=== PATIENT | male | born 1965 | race Caucasian/White ===

== ENCOUNTER 2020-05-02 16:47 | Inpatient (IN) | payer OTHER, SELFPAY ==
[2020-05-02] VITALS (8 sets, daily range): BP systolic 115–126; BP diastolic 62–70; PULSE 66–108; RESP 20–24; TEMP 37.2–38.2; O2SAT 90–93; BMI 29.8
--- NOTE | ~2020-05-02 | XR_ITS ---
EXAMINATION: XR chest 1V portable INDICATION: COVID pneumonia TECHNIQUE: Portable AP chest at 0524 hours COMPARISON: 05/03/2020 FINDINGS: Diffuse opacities persist in all lung zones with slight interval improvement. There is no p leural effusion or pneumothorax. The cardiomediastinal silhouette is normal. IMPRESSION: 1. Diffuse lung disease with interval improvement, consistent with pneumonia and/or pulmonary edema a nd/or acute respiratory distress syndrome (ARDS). Reviewed, dictated and finalized at location A. CT MARKETING SPECIALIST IMPRESSION: 1. Diffuse lung disease with interval improvement, consistent with pneumonia an d/or pulmonary edema and/or acute respiratory distress syndrome (ARDS).
--- NOTE | ~2020-05-02 | XR_ITS ---
EXAMINATION: XR chest 1V portable INDICATION: Shortness of breath and cough, COVID 19 positive TECHNIQUE: Portable AP chest at 1738 hours COMPARISON: None available FINDINGS: There are diffuse opacities throughout all lung zones. No pleural effusion or pneumothorax is identified. The cardiomediastinal silhouette is normal for technique. IMPRESSION: 1. Diffuse lung disease, likely COVID 19 pneumonia given clinical history. Reviewed, dictated and finalized at location A. NESE PROFESSOR
--- NOTE | ~2020-05-02 | XR_ITS ---
EXAMINATION: XR chest 1V portable INDICATION: Increasing oxygen TECHNIQUE: Portable AP chest at 0742 hours COMPARISON: 05/02/2020 FINDINGS: There are diffuse opacities throughout all lung zones which demonstrate slight interval wor sening. There is no pleural effusion or pneumothorax. The cardiomediastinal silhouette is stable. IMPRESSION: 1. Diffuse lung disease with interval worsening, consistent with pneumonia and/or pulmonary edema and /or acute respiratory distress syndrome (ARDS). Reviewed, dictated and finalized at location A. LATION ENGINEER IMPRESSION: 1. Diffuse lung disease with interval worsening, consistent with pneumonia and/ or pulmonary edema and/or acute respiratory distress syndrome (ARDS).
[2020-05-02 17:28] LABS: Basophils Percent Auto 0.2 % (0.2-1.2); Hematocrit 42.9 % (42.0-52.0); Hemoglobin 14.4 g/dL (14.0-18.0); Immature Granulocyte Absolute 0.08 K/mm3 (0.00-0.031); Immature Granulocyte Percent A 0.6 % (0-0.5); Lymphocytes Absolute Auto 0.86 K/mm3 (0.9-3.2); Lymphocytes Percent Auto 6.4 % (18.3-44.2); Mean Corpuscular HGB Conc 33.6 g/dl (32-36); Mean Corpuscular Hemoglobin 29.7 pg (26-34); Mean Corpuscular Volume 88.5 fl (80-100); Mean Platelet Volume 8.9 fl (7.4-10.4); Monocytes Absolute Auto 0.6 K/mm3 (0.1-0.6); Monocytes Percent Auto 4.5 % (2.6-8.5); Neutrophils Absolute Auto 11.9 K/mm3 (1.3-6.7); Neutrophils Percent Auto 88.3 % (45.5-73.1); Platelet Count Result 294 k/mm3 (150-375); Red Blood Count 4.85 M/mm3 (4.6-6.20); Red Cell Distribution Width 12.6 % (11.5-14.5); White Blood Count 13.4 K/mm3 (4.5-10.0)
[2020-05-02 17:40] LABS: Lactate Dehydrogenase 886 U/L (313-618)
[2020-05-02] MEDS: DEXAMETHASONE SOD PHOS INJ 4 MG/ML VIAL 6 MG IV PUSH (17:42)
[2020-05-02] MEDS: ENOXAPARIN 100 MG/ML SYRINGE SUB-Q (17:42)
[2020-05-02] MEDS: ALBUTEROL SULFATE (*SP) AEROSOL 1 PUFF 4 PUFF INHALATION (17:49)
--- NOTE | 2020-05-02 18:44 | ED.SOB ---
HPI - SOB/Dyspnea General Chief Complaint: Shortness of Breath/Dyspnea Stated Complaint: covid +/SOB Time Seen by Provider: 05/02/20 17:07 Source: patient Mode of arrival: ambulatory Limitations: no limitations History of Present Illness HPI Narrative: 54-year-old male Type 2 diabetes hypertension and high cholesterol 8 days ago he started having URI symptoms with congestion 7 days ago he had a Covid test done at [facility] Days ago the Covid test was reported as positive and he was started on an albuterol inhaler as needed by his primary care doctor 2 days ago he started getting more short of breath and to cough more and this has continued to become progressively worse He works for [employer], has not been in contact with Covid that he knows of, has not been able to get immunized either and did not get bamlanivimab elicited complaint: shortness of breath and cough Related Data Allergies Allergy/AdvReac Type Severity Reaction Status Date / Time No Known Allergies Allergy Unverified 05/02/20 17:03 Review of Systems Review of Systems: All systems reviewed & are unremarkable except as noted in HPI and below Constitutional: Constitutional: Reports chills, Reports fatigue, Reports fever(s), Denies headache(s) and Reports weakness Eyes: Eyes: Reports no additional eye complaints and Denies change in vision ENT: Denies headache(s), Denies epistaxis, Reports nasal congestion and Denies sore throat Cardiovascular: Cardiovascular: Denies chest pain, Denies leg edema, Denies palpitations and Denies dyspnea Respiratory: Respiratory: Reports cough, Reports dyspnea and Denies wheezing Gastrointestinal: Gastrointestinal: Denies diarrhea and Denies vomiting Genitourinary: Genitourinary: Denies hematuria, Denies dysuria and Denies urinary frequency Musculoskeletal: Musculoskeletal: Reports myalgias, Denies deformity, Denies arthralgias, Denies joint swelling, Denies muscle weakness and Denies numbness Integumentary/Breasts: Skin/Breast: Denies rash and Denies wounds Neurologic: Denies headache(s), Denies focal weakness, Denies numbness and Reports weakness Psychiatric: Psychiatric: Reports no additional psychiatric complaints Endocrine: Endocrine: Denies fatigue and Denies palpitations Hematologic/Lymphatic: Hematologic/Lymphatic: Denies easy bleeding and Denies easy bruising Allergic/Immunologic: Allergic/Immunologic: Denies wheezing [facility] Family History Family History (Updated 09/24/15 @ 23:19 by DOCTOR UNKNOWN) Father Hypertension Carcinoma of colon Family history of diabetes mellitus in first degree relative Family history of coronary artery disease Mother Hypertension Social History Social History (Updated 10/10/19 @ 13:58 by Raysa Cortez) Smoking status: Never smoker Second hand tobacco smoke exposure: No Alcohol intake: never Substance use: never Substance use type: does not use Gender identity (if verbalized by the patient): Male Exam Const: General: well developed, alert and awake Nutritional Appearance: well nourished Orientation/consciousness: patient oriented x3 (alert) HENMT: Head: normocephalic and atraumatic Ears: external ears normal General nose exam: No nasal discharge present and no epistaxis Face and sinus: face symmetric Eyes: Conjunctivae: conjunctivae normal Sclera: sclerae normal EOM: EOMs intact bilaterally Neck: Neck: normal visual inspection, supple and no JVD Chest: Chest palpation & inspection: deferred Resp: Effort & Inspection: tachypneic Auscultation: clear to auscultation bilaterally, no wheezes and other (BS =) Cardio: Rate: regular rate Rhythm: regular rhythm Heart sounds: no gallops and no murmurs GI: Inspection: normal to inspection Back/Spine/Pelvis: Thoracic/Lumbar Spine: thoracic and lumbar spine normal to inspection Skin: General skin exam: normal color and no rashes or lesions noted Neuro: General: patient oriented
[2020-05-02 19:37] LABS: Alanine Aminotransferase 27 U/L (4-50); Albumin Level 4.2 g/dL (3.5-5.1); Alkaline Phosphatase 70 U/L (38-126); Anion Gap 10 mmol/L (8-16); Aspartate Amino Transferase 54 U/L (17-59); Bilirubin,Total 0.7 mg/dL (0.2-1.3); Blood Urea Nitrogen 21 mg/dL (9-20); Calcium 8.6 mg/dL (8.4-10.2); Carbon Dioxide 30 mmol/L (22-30); Chloride 93 mmol/L (98-107); Estimated CRCL calculation 83 ml/min; Estimated Glomerular Filt Rate > 60; Glucose 233 mg/dL (75-110); Potassium 4.1 mmol/L (3.4-5.0); Sodium 133 mmol/L (137-145)
--- NOTE | 2020-05-02 20:49 | PM.IMHP ---
H&P: HPI History of Present Illness Date/Time: 05/02/20 20:49 Chief Complaint: COVID-19, worsening shortness of breath Narrative: Clayton Raoms is a 54 year old male with a past medical history of diabetes, hypertension and COVID diagnosis 7 days ago who presented to the ER with shortness of breath. On arrival to the ER the patient was satting 86% on room air. The patient is now on 4 L nasal cannula satting 88-90%. The patient reports that he has been having symptoms for 8 days. He tested positive for COVID 7 days ago. He contacted his primary care physician and was given scripts for benzo weight and albuterol. His symptoms included mild nonproductive cough, low-grade fevers with temperatures mostly around 99 until the last 48 hours at which time he spiked to 101, mild generalized headaches and nasal congestion. He reports that he was having some abdominal pain with coughing for the last couple of days but the abdominal pain has since resolved. He began having shortness of breath 3 days ago that significantly worsened over the last 24 hours. He denies any chest pain or palpitations. He denies any loss of sense of taste or smell. He has not been having any GI symptoms. He denies any body aches. He reports that he works in the [employer] industry and does not know of any recent ill contacts. Review of Systems Review of Systems: Narrative: 12 systems were reviewed with pertinent positives and negatives per HPI. Except as documented in the HPI, all other systems were reviewed and are negative. [facility] Past Medical History Medical History (Updated 05/02/20 @ 21:55 by Shawnee Rothman DO) Diabetes mellitus Hemoglobin A1c 09/2019 7.5 Essential (primary) hypertension Pure hypercholesterolemia Surgical History Surgical History (Updated 05/02/20 @ 21:55 by Shawnee Rothman DO) History of tonsillectomy and adenoidectomy Family History Family History (Updated 05/02/20 @ 21:56 by Shawnee Rothman DO) Father , At age 73 Diabetes mellitus Coronary artery disease Carcinoma of colon Hypertension Mother Hypertension Sibling Perforated chronic stomach ulcer Opioid dependence Social History Social History (Updated 05/02/20 @ 21:57 by Shawnee Rothman DO) Social History: He lives in [place] with his of 30 years. He also lives with his 20-year-old son and his father in law. He works in the [employer] industry. He is a lifelong nonsmoker and never drinks alcohol or uses illicit substances. She Primary care physician: Dr. Asim Peraza Code status: Full code Surrogate decision maker: Zena () Smoking status: Never smoker Second hand tobacco smoke exposure: No Alcohol intake: never Substance use: never Substance use type: does not use Gender identity (if verbalized by the patient): Male Spiritual care concerns: No Meds Home Medications and Allergies Home Medications Medication Instructions Recorded Confirmed Type blood sugar diagnostic #100 each 04/25/19 05/02/20 Rx empagliflozin 10 mg tablet 10 mg PO DAILY #90 tablet 02/03/20 05/02/20 Rx lisinopril 20 1 tablet PO DAILY #90 tablet 02/03/20 05/02/20 Rx mg-hydrochlorothiazide 25 mg tablet metformin 1,000 mg tablet 1,000 mg PO BID #180 tablet 02/03/20 05/02/20 Rx rosuvastatin 10 mg tablet 10 mg PO DAILY #90 tablet 02/03/20 05/02/20 Rx saxagliptin 5 mg tablet 5 mg PO DAILY #90 tablet 02/03/20 05/02/20 Rx benzonatate 100 mg capsule 100 mg PO TID PRN #30 cap 04/26/20 05/02/20 Rx albuterol sulfate 2 inh INHALATION Q4H PRN 05/02/20 05/02/20 History Allergies Allergy/AdvReac Type Severity Reaction Status Date / Time No Known Allergies Allergy Unverified 05/02/20 17:03 Vital Signs Vital Signs - 24 hr 05/02/20 16:53 05/02/20 17:30 05/02/20 18:30 Temperature 99 F Pulse Rate 97 108 H 103 H Respiratory Rate 23 H 24 H 22 H Blood Pressure 125/62 116/70 122/64 Pulse Oximetry 90 93 92 05/02/20
--- NOTE | 2020-05-02 20:58 | PC.NURSE ---
This patient, Clayton Ramos, was admitted to [facility] Surg Room 328-01. Patient/family oriented to hospital policies and general routines including ID bracelet, bed and alarms, visiting hours, pain management, procedures, bathroom and other care routines, personal items, smoking policy, room service/diet, and visiting hours. Information on how to activate the Rapid Response Team has been discussed. Patient/Family are encouraged to report perceived risks to care and to ask questions if they do not understand what they are told or what they should do.
[2020-05-02] MEDS: LACTATED RINGERS 1,000 ML 30 ML IV CONT (21:16)
[2020-05-02] MEDS: FAMOTIDINE 20 MG/2 ML VIAL IV PUSH (21:17)
[2020-05-02] MEDS: REMDESIVIR 200 MG/NS 250 ML 200 MG/250 ML BAG 250 MG IVPB (21:48)
[2020-05-02 23:54] LABS: Glucose Point of Care 344 (65-105)
[2020-05-02 23:54] LABS: Glucose Point of Care 273 (65-105)
[2020-05-03] VITALS (21 sets, daily range): BP systolic 109–128; BP diastolic 55–67; PULSE 54–86; RESP 17–28; TEMP 35.6–37.1; O2SAT 90–99
[2020-05-03] MEDS: INSULIN ASPART (*BKC) 100 UNITS/ML 6 UNITS SUB-Q (01:27)
[2020-05-03] MEDS: ALBUTEROL SULFATE (*SP) AEROSOL 1 PUFF 4 PUFF INHALATION ×3 (01:52→20:00)
[2020-05-03] MEDS: ENOXAPARIN 100 MG/ML SYRINGE SUB-Q ×2 (05:23→19:00)
[2020-05-03 05:27] LABS: Glucose Point of Care 243 (65-105)
[2020-05-03 06:20] LABS: Alanine Aminotransferase 24 U/L (4-50); Albumin Level 3.5 g/dL (3.5-5.1); Alkaline Phosphatase 57 U/L (38-126); Anion Gap 7 mmol/L (8-16); Aspartate Amino Transferase 39 U/L (17-59); Bilirubin,Total 0.4 mg/dL (0.2-1.3); Blood Urea Nitrogen 26 mg/dL (9-20); Calcium 7.7 mg/dL (8.4-10.2); Carbon Dioxide 31 mmol/L (22-30); Chloride 94 mmol/L (98-107); Estimated CRCL calculation 76 ml/min; Estimated Glomerular Filt Rate > 60; Glucose 271 mg/dL (75-110); Lactate Dehydrogenase 766 U/L (313-618); Potassium 4.2 mmol/L (3.4-5.0); Sodium 132 mmol/L (137-145)
[2020-05-03 06:47] LABS: Hematocrit 38.3 % (42.0-52.0); Hemoglobin 12.8 g/dL (14.0-18.0); Mean Corpuscular HGB Conc 33.4 g/dl (32-36); Mean Corpuscular Hemoglobin 29.4 pg (26-34); Mean Corpuscular Volume 87.8 fl (80-100); Mean Platelet Volume 9.2 fl (7.4-10.4); Platelet Count Result 315 k/mm3 (150-375); Red Blood Count 4.36 M/mm3 (4.6-6.20); Red Cell Distribution Width 12.2 % (11.5-14.5); White Blood Count 12.2 K/mm3 (4.5-10.0)
[2020-05-03 07:29] LABS: CRP 34.4 mg/dL (<1.0)
--- NOTE | 2020-05-03 07:32 | PCCARD ---
Changed echocardiogram w/bubble study order to a regular echocardiogram due to patient positive for covid. We don't due bubble studies when patient is covid positive
[2020-05-03] MEDS: ALBUTEROL SULFATE NEB 2.5 MG/3 ML INH 1.25 MG INHALATION (07:42)
[2020-05-03] MEDS: IPRATROPIUM BR 0.02% INH SOLN 0.5 MG/2.5 ML VIAL INHALATION (07:42)
[2020-05-03 07:49] LABS: Alveolar/Arterial O2 Gradient 611.3 mmHg; Base Excess ABG 1.1 mEq/l (+/-2.0); Fractional Inspired Oxygen 100 %; HCO3 ABG 23.9 mEq/l (22.0-26.0); Methemoglobin ABG 0.2 %THb (0-1.5); Oxygen Content ABG 18.8 %vol (16.0-22.0); Oxygen Saturation ABG 95.1 % (95.0-100.0); Oxyhemoglobin 93.4 % THb (90.0-100.0); PCO2 ABG 32.8 mmHg (35.0-45.0); PO2 ABG 68.9 mmHg (80.0-100.0); PO2 FiO2 Ratio Arterial Blood 0.69 %; Reduced Hemoglobin 6.4 %THb (0-5.0); Total Hemoglobin 14.3 g/dL (12.0-18.0); pH ABG 7.481 (7.350-7.450)
[2020-05-03 07:50] LABS: Device HIGH FLOW NASAL CANN; Modified Allen's Test Pass; Site Drawn RIGHT RADIAL
[2020-05-03 08:09] LABS: INR 1.1; Prothrombin Time 14.7 Seconds (11.1-14.7)
[2020-05-03 08:11] LABS: Partial Thromboplastin Time 51.9 SECONDS (22.3-36.8)
[2020-05-03] MEDS: INSULIN ASPART (*BKC) 100 UNITS/ML SUB-Q ×3 (08:11→19:00)
[2020-05-03 08:13] LABS: D Dimer 0.67 ug/mL (<0.48)
[2020-05-03] MEDS: INSULIN ASPART (*BKC) 100 UNITS/ML 10 UNITS SUB-Q ×3 (08:13→19:00)
[2020-05-03] MEDS: FAMOTIDINE 20 MG/2 ML VIAL IV PUSH ×2 (08:14→20:47)
[2020-05-03] MEDS: DEXAMETHASONE SOD PHOS INJ 4 MG/ML VIAL 6 MG IV PUSH (08:14)
[2020-05-03] MEDS: hydroCHLOROthiazide 25 MG TABLET PO (08:14)
[2020-05-03 08:15] LABS: NT Pro B Type Natriuretic Pept 1830 PG/ML (5-100)
[2020-05-03] MEDS: lisinopriL 20 MG TABLET PO (08:15)
[2020-05-03] MEDS: ROSUVASTATIN 10 MG TABLET PO (08:15)
[2020-05-03 08:29] LABS: Glucose Point of Care 256 (65-105)
--- NOTE | 2020-05-03 09:23 | PC.NURSE ---
This patient, Clayton Ramos, was transferred to [IMU] on 05/03/20 at 0858. Personal belongings sent with patient. Report given to [Marya]. Appropriate documentation sent with patient.
[2020-05-03 12:45] LABS: Glucose Point of Care 296 (65-105)
--- NOTE | 2020-05-03 14:31 | PM.IMPN ---
Progress Note: A&P Assessment and Plan (1) Pneumonia due to COVID-19 virus: Code(s): U07.1 - COVID-19; J12.82 - Pneumonia due to coronavirus disease 2019 Status: Acute Assessment and Plan: Transferred to IMU due to increased oxygen demands Remdesivir/Dexamethasone/Convalescent plasma Inflammatory markers Flu CTA PE protocol (2) Acute respiratory failure with hypoxia: Code(s): J96.01 - Acute respiratory failure with hypoxia Status: Acute Assessment and Plan: On 15 L by HFNC Try and keep O2 sat at 94% Discussed vent support patient agreeable to it (3) Type 2 diabetes mellitus with hyperglycemia: Qualifiers: Diabetes mellitus hydrometer finisher insulin use: without correction use Qualified Code(s): E11.65 - Type 2 diabetes mellitus with hyperglycemia Code(s): E11.65 - Type 2 diabetes mellitus with hyperglycemia Status: Acute Assessment and Plan: ISS as needed Holding po drugs due to potential fo adverse reaction and or complications with metabolic acidosis and kidney failure Subjective Date/time seen: 05/03/20 14:31 Patient states that he feels ok Review of Systems Review of Systems: Narrative: cough, sob, positive for Covid 19 Constitutional: Comments: no fever, no rigors, no chills. Cardiovascular: Comments: no chest pain, no pnd, no orthopnea Respiratory: Comments: dry cough, sob. Gastrointestinal: Comments: no n/v/abdominal pain. Musculoskeletal: Comments: no joint pain or swelling. Integumentary/Breasts: Comments: no rashes Neurologic: Comments: no sensory motor deficit. Exam Narrative: Exam Narrative: Sitting in bed. Const: General: comfortable, no acute distress, alert, awake, Physically active and ill appearing acutely Nutritional Appearance: average body habitus Orientation/consciousness: patient oriented x3 HENMT: Head: normal to inspection and normocephalic Ears: hearing grossly normal bilaterally General nose exam: Normal external nose present Eyes: General: appearance normal, both eyes and all related structures Pupils: Equal, round and reactive pupils present EOM: EOMs intact bilaterally Neck: Neck: no lymphadenopathy, supple and no JVD Lymphatic: no lymphadenopathy noted Resp: Effort & Inspection: normal respiratory effort and able to speak in complete sentences Auscultation: diminished lung sounds Cardio: Jugular venous distension: no JVD Rate: regular rate Rhythm: regular rhythm GI: GI Palp: Yes Soft to palpation and Yes No hepatosplenomegaly present Skin: Rashes: no rashes Neuro: General: patient oriented x3 and CN's II-XI intact bilaterally Cranial nerves: Yes CN's II-XII intact bilaterally and Yes Equal, round and reactive pupils present Cognition (Neuro): normal cognition Gait exam (Neuro): Normal gait present Motor exam (neuro): 5/5 motor strength present throughout Extrem: General: no pedal edema Objective Data Vital Signs Vital Signs: Vital Signs - 24 hr 05/02/20 16:53 05/02/20 17:30 05/02/20 18:30 Temperature 99 F Pulse Rate 97 108 H 103 H Respiratory Rate 23 H 24 H 22 H Blood Pressure 125/62 116/70 122/64 Pulse Oximetry 90 93 92 05/02/20 19:50 05/02/20 20:20 05/02/20 21:00 Temperature 100.7 F H Pulse Rate 98 97 Respiratory Rate 20 20 Blood Pressure 126/65 115/66 Pulse Oximetry 92 91 91 05/02/20 21:45 05/02/20 23:57 05/03/20 00:00 Temperature 98.5 F Pulse Rate 80 66 66 Respiratory Rate 20 Blood Pressure 128/64 Pulse Oximetry 92 91 05/03/20 00:49 05/03/20 02:00 05/03/20 02:05 Temperature Pulse Rate 71 Respiratory Rate 28 H Blood Pressure Pulse Oximetry 91 92 92 05/03/20 03:12 05/03/20 03:22 05/03/20 04:00 Temperature 98.5 F Pulse Rate 76 Respiratory Rate 22 H Blood Pressure 123/60 Pulse Oximetry 90 93 93 05/03/20 07:42 05/03/20 07:51 05/03/20 08:00 Temperature 97.9 F Pulse Rate 78 78 73 Respiratory Rate 20 20 20 Blood
--- NOTE | 2020-05-03 14:45 | PC.NURSE ---
Patient transferred from [facility] to IMU at 0855 due to COVID + and increasing oxygen needs.
[2020-05-03 15:46] LABS: NT Pro B Type Natriuretic Pept 1860 PG/ML (5-100)
[2020-05-03 17:16] LABS: Glucose Point of Care 335 (65-105)
[2020-05-03] MEDS: SODIUM CHLORIDE 0.9% IV 250 ML 30 ML IV CONT (19:00)
[2020-05-03] MEDS: TUBING, BLOOD PLUM PUMP TUBING 1 EACH XX (19:00)
[2020-05-03] MEDS: REMDESIVIR 100 MG/NS 250 ML 100 MG/250 ML BAG 250 MG IVPB (22:24)
[2020-05-04] VITALS (19 sets, daily range): BP systolic 108–121; BP diastolic 56–63; PULSE 57–107; RESP 18–225; TEMP 35.6–36.9; O2SAT 91–97
[2020-05-04] MEDS: ALBUTEROL SULFATE (*SP) AEROSOL 1 PUFF 4 PUFF INHALATION ×4 (02:00→20:40)
[2020-05-04 04:55] LABS: Mean Corpuscular HGB Conc 33.3 g/dl (32-36); Mean Platelet Volume 8.9 fl (7.4-10.4); Platelet Count Result 340 k/mm3 (150-375); Red Blood Count 4.14 M/mm3 (4.6-6.20); Red Cell Distribution Width 12.4 % (11.5-14.5); White Blood Count 12.8 K/mm3 (4.5-10.0)
[2020-05-04 05:15] LABS: Alanine Aminotransferase 28 U/L (4-50); Albumin Level 3.2 g/dL (3.5-5.1); Alkaline Phosphatase 60 U/L (38-126); Anion Gap 7 mmol/L (8-16); Aspartate Amino Transferase 39 U/L (17-59); Bilirubin,Total 0.4 mg/dL (0.2-1.3); Blood Urea Nitrogen 40 mg/dL (9-20); Calcium 7.7 mg/dL (8.4-10.2); Carbon Dioxide 31 mmol/L (22-30); Chloride 95 mmol/L (98-107); Estimated CRCL calculation 83 ml/min; Estimated Glomerular Filt Rate > 60; Glucose 245 mg/dL (75-110); Lactate Dehydrogenase 779 U/L (313-618); Sodium 133 mmol/L (137-145)
[2020-05-04 05:33] LABS: CRP 20.8 mg/dL (<1.0)
[2020-05-04] MEDS: ENOXAPARIN 100 MG/ML SYRINGE SUB-Q ×2 (06:07→17:04)
[2020-05-04 08:06] LABS: Glucose Point of Care 256 (65-105)
[2020-05-04] MEDS: lisinopriL 20 MG TABLET PO (09:14)
[2020-05-04] MEDS: DEXAMETHASONE SOD PHOS INJ 4 MG/ML VIAL 6 MG IV PUSH (09:14)
[2020-05-04] MEDS: FAMOTIDINE 20 MG/2 ML VIAL IV PUSH ×2 (09:14→20:30)
[2020-05-04] MEDS: hydroCHLOROthiazide 25 MG TABLET PO (09:14)
[2020-05-04] MEDS: INSULIN ASPART (*BKC) 100 UNITS/ML SUB-Q ×3 (09:15→17:06)
[2020-05-04] MEDS: INSULIN ASPART (*BKC) 100 UNITS/ML 10 UNITS SUB-Q ×3 (09:15→17:06)
[2020-05-04 12:29] LABS: Glucose Point of Care 324 (65-105)
[2020-05-04 15:33] LABS: Influenza Control Positive
--- NOTE | 2020-05-04 17:09 | PM.IMPN ---
Progress Note: A&P Assessment and Plan (1) Acute respiratory failure with hypoxia: Code(s): J96.01 - Acute respiratory failure with hypoxia Status: Acute Assessment and Plan: Patient was up to 15 L HFNC. Chest x-ray yesterday showed diffuse lung disease with interval worsening. He did receive plasma yesterday. O2 requirement improved today at 10L. Continue supportive care. (2) Pneumonia due to COVID-19 virus: Code(s): U07.1 - COVID-19; J12.82 - Pneumonia due to coronavirus disease 2018 Status: Acute Assessment and Plan: Transferred to IMU yesterday due to increased oxygen demands. Given Convalescent plasma 05/03/20. Remains on Dexamethasone and Remdesivir. Inflammatory markers showing improved CRP level but LDH about the same with ferritin climbing. Influenza negative. Oxygen requirement improved. Continue supportive care. Lower Lovenox dose. (3) Type 2 diabetes mellitus with hyperglycemia: Qualifiers: Diabetes mellitus buttermilk drier operator insulin use: without buttermilk drier operator use Qualified Code(s): E11.65 - Type 2 diabetes mellitus with hyperglycemia Code(s): E11.65 - Type 2 diabetes mellitus with hyperglycemia Status: Acute Assessment and Plan: The patient's blood glucose was reviewed on 05/04 Glucose poorly controlled due to steroids. Empagliflozin, saxagliptin and metformin held. Continue AccuCheks covering with sliding scale. Hypoglycemia protocol available as needed. Continue current medications. Add Lantus (4) Essential (primary) hypertension: Code(s): I10 - Essential (primary) hypertension Status: Acute Assessment and Plan: Patient's blood pressure was reviewed on 05/04 Blood pressure remains well controlled. Will continue current medications with lisinopril and hydrochlorothiazide. (5) DVT prophylaxis: Code(s): Z29.9 - Encounter for prophylactic measures, unspecified Status: Acute Assessment and Plan: Lovenox but lower dose to prophylactic dose. Subjective Date/time seen: 05/04/20 17:09 Interval history: Date of service 05/04 54yo male with DM, HTN here for COVID PNA and respiratory failure. Feels much better. SOB better. Still with VARELA. No CP. Eating well. no dysgeusia. Exam Narrative: Exam Narrative: AF 96.1 121/63 64 22 95 % 12L HFNC (on 10L currenlty) Gen - NARD Chest - distant but clear BS, nml RR CV - RRR S1/S2; Tele showing no significant dysrhythmias Abd - Soft, NT/ND, Positive BS Ext - mild nonpitting pedal edema Neuro - Alert and oriented. Nonfocal exam. Psych - Nml mood and affect Skin - Warm and dry Objective Data Vital Signs Vital Signs: Vital Signs - 24 hr 05/03/20 17:45 05/03/20 19:23 05/03/20 20:00 Temperature 98.7 F 97.3 F L 97.3 F L Pulse Rate 70 86 83 Respiratory Rate 20 18 18 Blood Pressure 114/58 L 125/67 Pulse Oximetry 96 91 99 05/03/20 21:46 05/03/20 22:00 05/04/20 00:00 Temperature 98.2 F Pulse Rate 79 69 81 Respiratory Rate 18 20 Blood Pressure 110/56 L Pulse Oximetry 92 91 05/04/20 02:00 05/04/20 04:00 05/04/20 06:00 Temperature 98.2 F Pulse Rate 65 57 L 57 L Respiratory Rate 18 Blood Pressure 110/59 L Pulse Oximetry 92 05/04/20 08:00 05/04/20 08:15 05/04/20 08:38 Temperature 96.7 F L Pulse Rate 72 72 Respiratory Rate 23 H 23 H Blood Pressure 108/56 L Pulse Oximetry 93 91 93 05/04/20 10:00 05/04/20 12:00 05/04/20 12:40 Temperature 96.1 F L Pulse Rate 73 71 70 Respiratory Rate 22 H Blood Pressure 121/63 Pulse Oximetry 95 92 05/04/20 14:00 05/04/20 14:13 Temperature Pulse Rate 64 Respiratory Rate Blood Pressure Pulse Oximetry 95 Intake/Output Intake/Output: Intake & Output 05/01/20 05/02/20 05/03/20 05/04/20 23:59 23:59 23:59 23:59 Intake Total 250 1697 480 Output Total 2300 200 Balance 250 -603 280 Meds/Results Medications: Active Medications G
[2020-05-04 17:12] LABS: Glucose Point of Care 247 (65-105)
[2020-05-04 20:21] LABS: Glucose Point of Care 360 (65-105)
[2020-05-04] MEDS: INSULIN GLARGINE (*BKC) 100 UNITS/ML 15 UNITS SUB-Q (20:31)
[2020-05-04] MEDS: REMDESIVIR 100 MG/NS 250 ML 100 MG/250 ML BAG 250 MG IVPB (20:31)
[2020-05-05] VITALS (15 sets, daily range): BP systolic 93–119; BP diastolic 41–65; PULSE 50–107; RESP 16–225; TEMP 36.3–37; O2SAT 88–98
[2020-05-05 04:53] LABS: Hemoglobin 12.1 g/dL (14.0-18.0); Mean Corpuscular HGB Conc 33.6 g/dl (32-36); Mean Corpuscular Hemoglobin 29.5 pg (26-34); Mean Corpuscular Volume 87.8 fl (80-100); Mean Platelet Volume 8.8 fl (7.4-10.4); Platelet Count Result 357 k/mm3 (150-375); Red Cell Distribution Width 12.3 % (11.5-14.5); White Blood Count 10.2 K/mm3 (4.5-10.0)
[2020-05-05 05:01] LABS: Hemoglobin A1C 8.7 % (<5.7)
[2020-05-05 05:06] LABS: Potassium 4.3 mmol/L (3.4-5.0)
[2020-05-05 05:14] LABS: Alanine Aminotransferase 25 U/L (4-50); Alkaline Phosphatase 56 U/L (38-126); Anion Gap 3 mmol/L (8-16); Aspartate Amino Transferase 32 U/L (17-59); Bilirubin,Total 0.4 mg/dL (0.2-1.3); Blood Urea Nitrogen 38 mg/dL (9-20); CRP 8.5 mg/dL (<1.0); Calcium 7.9 mg/dL (8.4-10.2); Carbon Dioxide 31 mmol/L (22-30); Chloride 98 mmol/L (98-107); Estimated CRCL calculation 92 ml/min; Estimated Glomerular Filt Rate > 60; Glucose 264 mg/dL (75-110); Lactate Dehydrogenase 743 U/L (313-618); Sodium 132 mmol/L (137-145)
[2020-05-05 07:54] LABS: Glucose Point of Care 232 (65-105)
[2020-05-05] MEDS: ENOXAPARIN 40 MG/0.4 ML SYRINGE SUB-Q ×2 (09:30→20:36)
[2020-05-05] MEDS: FAMOTIDINE 20 MG/2 ML VIAL IV PUSH ×2 (09:30→20:36)
[2020-05-05] MEDS: DEXAMETHASONE SOD PHOS INJ 4 MG/ML VIAL 6 MG IV PUSH (09:32)
[2020-05-05] MEDS: ALBUTEROL SULFATE (*SP) AEROSOL 1 PUFF 4 PUFF INHALATION ×3 (09:32→20:34)
[2020-05-05] MEDS: INSULIN ASPART (*BKC) 100 UNITS/ML SUB-Q ×3 (09:40→17:38)
[2020-05-05] MEDS: INSULIN ASPART (*BKC) 100 UNITS/ML 10 UNITS SUB-Q ×2 (09:40→13:36)
[2020-05-05 10:03] LABS: Glucose Point of Care 401 (65-105)
[2020-05-05 13:42] LABS: Glucose Point of Care 295 (65-105)
--- NOTE | 2020-05-05 16:01 | PM.IMPN ---
Progress Note: A&P Assessment and Plan (1) Acute respiratory failure with hypoxia: Code(s): J96.01 - Acute respiratory failure with hypoxia Status: Acute Assessment and Plan: Patient was up to 15 L HFNC. Chest x-ray yesterday showed diffuse lung disease with interval worsening. He did receive plasma 05/03 . O2 requirement contineus to improve. (2) Pneumonia due to COVID-19 virus: Code(s): U07.1 - COVID-19; J12.82 - Pneumonia due to coronavirus disease 2018 Status: Acute Assessment and Plan: Transferred to IMU due to increased oxygen demands. Given Convalescent plasma 05/03/20. Remains on Dexamethasone and Remdesivir. Inflammatory markers showing improved CRP level but LDH about the same with ferritin climbing. Influenza negative. Oxygen requirement improved. Continue supportive care. (3) Type 2 diabetes mellitus with hyperglycemia: Qualifiers: Diabetes mellitus half-way insulin use: without half-way use Qualified Code(s): E11.65 - Type 2 diabetes mellitus with hyperglycemia Code(s): E11.65 - Type 2 diabetes mellitus with hyperglycemia Status: Acute Assessment and Plan: Glucose poorly controlled due to steroids. Empagliflozin, saxagliptin and metformin held. Continue AccuCheks covering with sliding scale. Hypoglycemia protocol available as needed. Continue current medications. Add Lantus. adjust dose as needed (4) Essential (primary) hypertension: Code(s): I10 - Essential (primary) hypertension Status: Acute Assessment and Plan: Blood pressure remains well controlled. Will continue current medications with lisinopril and hydrochlorothiazide. (5) DVT prophylaxis: Code(s): Z29.9 - Encounter for prophylactic measures, unspecified Status: Acute Assessment and Plan: Lovenox Subjective Date/time seen: 05/05/20 16:01 Interval history: no overnight events, feels much better, leg swelling has been improving. oxygen need is down to 6l, was up to 15 l day befroe yesteday, no fever, chills mild cough. Review of Systems Constitutional: Constitutional: Denies fatigue and Denies weakness Eyes: Eyes: Denies blurry vision and Denies photophobia ENT: Denies epistaxis and Denies nasal discharge Cardiovascular: Cardiovascular: Denies diaphoresis and Denies lightheadedness Respiratory: Respiratory: Reports cough, Reports dyspnea and Reports dyspnea on exertion Gastrointestinal: Gastrointestinal: Denies abdominal pain, Denies bloating, Denies constipation and Denies diarrhea Genitourinary: Genitourinary: Denies dysuria and Denies urinary frequency Musculoskeletal: Musculoskeletal: Denies back pain and Denies neck pain Integumentary/Breasts: Skin/Breast: Denies dry skin and Denies rash Neurologic: Denies Abnormal speech present and Denies abnormal gait Psychiatric: Psychiatric: Denies anxiety and Denies confusion Exam Const: General: comfortable, no acute distress, alert, awake and Physically active Nutritional Appearance: average body habitus Orientation/consciousness: patient oriented x3 HENMT: Head: normal to inspection and normocephalic Ears: hearing grossly normal bilaterally General nose exam: Normal external nose present Eyes: General: appearance normal, both eyes and all related structures Pupils: Equal, round and reactive pupils present EOM: EOMs intact bilaterally Neck: Neck: no lymphadenopathy, supple and no JVD Lymphatic: no lymphadenopathy noted Resp: Effort & Inspection: normal respiratory effort and able to speak in complete sentences Auscultation: diminished lung sounds Cardio: Jugular venous distension: no JVD Rate: regular rate Rhythm: regular rhythm Skin: Rashes: no rashes Neuro: General: patient oriented x3 and CN's II-XI intact bilaterally Cranial nerves: Yes CN's II-XII intact bilaterally and Yes Equal, round and reactive pupils present Cognition (Neuro): normal
[2020-05-05 17:33] LABS: Glucose Point of Care 290 (65-105)
[2020-05-05] MEDS: INSULIN ASPART (*BKC) 100 UNITS/ML 15 UNITS SUB-Q (17:38)
[2020-05-05 20:23] LABS: Glucose Point of Care 333 (65-105)
[2020-05-05] MEDS: REMDESIVIR 100 MG/NS 250 ML 100 MG/250 ML BAG 250 MG IVPB (20:34)
[2020-05-05] MEDS: INSULIN GLARGINE (*BKC) 100 UNITS/ML 20 UNITS SUB-Q (20:35)
[2020-05-06] VITALS (15 sets, daily range): BP systolic 106–133; BP diastolic 58–69; PULSE 44–95; RESP 16–20; TEMP 36.2–36.9; O2SAT 90–98
[2020-05-06 04:50] LABS: Hematocrit 35.2 % (42.0-52.0); Hemoglobin 12.1 g/dL (14.0-18.0); Mean Corpuscular HGB Conc 34.4 g/dl (32-36); Mean Corpuscular Hemoglobin 29.5 pg (26-34); Mean Corpuscular Volume 85.9 fl (80-100); Mean Platelet Volume 8.5 fl (7.4-10.4); Platelet Count Result 397 k/mm3 (150-375); Red Cell Distribution Width 12.3 % (11.5-14.5); White Blood Count 9.1 K/mm3 (4.5-10.0)
[2020-05-06 05:58] LABS: Alanine Aminotransferase 26 U/L (4-50); Albumin Level 2.9 g/dL (3.5-5.1); Alkaline Phosphatase 49 U/L (38-126); Anion Gap 4 mmol/L (8-16); Aspartate Amino Transferase 29 U/L (17-59); Bilirubin,Total 0.3 mg/dL (0.2-1.3); Blood Urea Nitrogen 25 mg/dL (9-20); Carbon Dioxide 28 mmol/L (22-30); Chloride 103 mmol/L (98-107); Estimated CRCL calculation 103 ml/min; Estimated Glomerular Filt Rate > 60; Glucose 131 mg/dL (75-110); Lactate Dehydrogenase 702 U/L (313-618); Potassium 3.9 mmol/L (3.4-5.0); Sodium 135 mmol/L (137-145)
[2020-05-06 08:57] LABS: Glucose Point of Care 107 (65-105)
[2020-05-06] MEDS: FAMOTIDINE 20 MG/2 ML VIAL IV PUSH ×2 (09:51→20:21)
[2020-05-06] MEDS: DEXAMETHASONE SOD PHOS INJ 4 MG/ML VIAL 6 MG IV PUSH (09:51)
[2020-05-06] MEDS: ENOXAPARIN 40 MG/0.4 ML SYRINGE SUB-Q ×2 (09:52→20:20)
[2020-05-06] MEDS: ALBUTEROL SULFATE (*SP) AEROSOL 1 PUFF 4 PUFF INHALATION ×3 (09:52→20:19)
[2020-05-06 12:26] LABS: Glucose Point of Care 353 (65-105)
[2020-05-06] MEDS: INSULIN ASPART (*BKC) 100 UNITS/ML SUB-Q ×2 (12:30→17:10)
[2020-05-06] MEDS: INSULIN ASPART (*BKC) 100 UNITS/ML 15 UNITS SUB-Q ×2 (12:31→17:11)
--- NOTE | 2020-05-06 13:42 | PM.IMPN ---
Progress Note: A&P Assessment and Plan (1) Acute respiratory failure with hypoxia: Code(s): J96.01 - Acute respiratory failure with hypoxia Status: Acute Assessment and Plan: Patient was up to 15 L HFNC. Chest x-ray yesterday showed diffuse lung disease with interval worsening. He did receive plasma 05/03 . O2 requirement contineus to improve. Will continue current treatment monitor oxygen. (2) Pneumonia due to COVID-19 virus: Code(s): U07.1 - COVID-19; J12.82 - Pneumonia due to coronavirus disease 2018 Status: Acute Assessment and Plan: Transferred to IMU due to increased oxygen demands. Given Convalescent plasma 05/03/20. Remains on Dexamethasone and Remdesivir. Inflammatory markers showing improved CRP level but LDH about the same with ferritin climbing. Influenza negative. Oxygen requirement improved. Continue supportive care. Monitor oxygen requirement. Patient improving slightly. (3) Type 2 diabetes mellitus with hyperglycemia: Qualifiers: Diabetes mellitus mcc insulin use: without supervisor intermediates use Qualified Code(s): E11.65 - Type 2 diabetes mellitus with hyperglycemia Code(s): E11.65 - Type 2 diabetes mellitus with hyperglycemia Status: Acute Assessment and Plan: Glucose poorly controlled due to steroids. Empagliflozin, saxagliptin and metformin held. Continue AccuCheks covering with sliding scale. Hypoglycemia protocol available as needed. Continue current medications. Add Lantus. adjust dose as needed (4) Essential (primary) hypertension: Code(s): I10 - Essential (primary) hypertension Status: Acute Assessment and Plan: Blood pressure remains well controlled. Will continue current medications with lisinopril and hydrochlorothiazide. (5) DVT prophylaxis: Code(s): Z29.9 - Encounter for prophylactic measures, unspecified Status: Acute Assessment and Plan: Lovenox Additional Plan Patient has acute hypoxic respiratory failure secondary to COVID-19 pneumonia. The patient was given a dose of Decadron in the ER. Loss of continue Decadron use 6 mg daily per recommended guidelines. Will also initiate the patient on Remdesivir as well. Will titrate oxygen as tolerated to maintain oxygen saturations between 90 and 92%. The patient has been started on albuterol 4 puffs q.6 hours scheduled. The patient's oxygen requirement is still increasing. Will I discussed the risks and benefits of comp less than plasma with the patient. He is willing to proceed with convalescent plasma therapy. Will check daily labs and inflammatory markers. Given recommendations from the [facility] from March 19, 2020 they recommend full-dose Lovenox to decrease need for advanced life support in hospitalized patient's with COVID-19. The patient has been started on Lovenox 100 mg subq q.12 hours. The patient's diabetes is usually controlled with oral medications. Given Decadron use anticipate the patient having increased episodes of hyperglycemia. Moderate sliding scale insulin with Accu-Cheks a.c. HS have been ordered as well as hypoglycemia protocol. Will continue current treatment monitor oxygen. Repeat chest x-ray in the morning. This document was completed by using [employer] Direct speech recognition software, therefore, silk screen printer helper variances may occur. Despite proof reading and review of records errors may persist. Subjective Date/time seen: 05/06/20 13:42 Interval history: Patient was seen during the morning rounds today. Still has mild shortness of breath. No chest pain. Mood stable. Review of Systems Constitutional: Constitutional: Denies fatigue and Denies weakness Eyes: Eyes: Denies blurry vision and Denies photophobia ENT: Denies epistaxis, Denies nasal discharge and Denies neck pain Cardiovascular: Cardiovascular: Denies diaphoresis, Denies lightheadedness, Reports dyspnea and Reports dyspnea o
[2020-05-06 17:08] LABS: Glucose Point of Care 316 (65-105)
[2020-05-06 20:10] LABS: Glucose Point of Care 267 (65-105)
[2020-05-06] MEDS: REMDESIVIR 100 MG/NS 250 ML 100 MG/250 ML BAG 250 MG IVPB (20:20)
[2020-05-06] MEDS: INSULIN GLARGINE (*BKC) 100 UNITS/ML 20 UNITS SUB-Q (20:26)
[2020-05-07] VITALS (13 sets, daily range): BP systolic 105–122; BP diastolic 56–63; PULSE 43–85; RESP 16–18; TEMP 35.9–36.8; O2SAT 89–97
[2020-05-07 06:20] LABS: Hematocrit 36.6 % (42.0-52.0); Hemoglobin 12.4 g/dL (14.0-18.0); Mean Corpuscular HGB Conc 33.9 g/dl (32-36); Mean Corpuscular Hemoglobin 29.4 pg (26-34); Mean Corpuscular Volume 86.7 fl (80-100); Mean Platelet Volume 8.4 fl (7.4-10.4); Platelet Count Result 400 k/mm3 (150-375); Red Blood Count 4.22 M/mm3 (4.6-6.20); Red Cell Distribution Width 12.3 % (11.5-14.5); White Blood Count 10.4 K/mm3 (4.5-10.0)
[2020-05-07 06:39] LABS: Alanine Aminotransferase 31 U/L (4-50); Albumin Level 2.9 g/dL (3.5-5.1); Alkaline Phosphatase 50 U/L (38-126); Anion Gap 4 mmol/L (8-16); Aspartate Amino Transferase 34 U/L (17-59); Bilirubin,Total 0.4 mg/dL (0.2-1.3); Blood Urea Nitrogen 19 mg/dL (9-20); CRP 3.8 mg/dL (<1.0); Calcium 8.1 mg/dL (8.4-10.2); Carbon Dioxide 28 mmol/L (22-30); Chloride 105 mmol/L (98-107); Estimated CRCL calculation 103 ml/min; Estimated Glomerular Filt Rate > 60; Glucose 96 mg/dL (75-110); Lactate Dehydrogenase 710 U/L (313-618); Sodium 137 mmol/L (137-145)
[2020-05-07 07:48] LABS: Glucose Point of Care 73 (65-105)
[2020-05-07] MEDS: INSULIN ASPART (*BKC) 100 UNITS/ML 15 UNITS SUB-Q ×3 (08:31→18:06)
[2020-05-07] MEDS: ENOXAPARIN 40 MG/0.4 ML SYRINGE SUB-Q ×2 (08:31→21:32)
[2020-05-07] MEDS: DEXAMETHASONE SOD PHOS INJ 4 MG/ML VIAL 6 MG IV PUSH (08:31)
[2020-05-07] MEDS: FAMOTIDINE 20 MG/2 ML VIAL IV PUSH ×2 (08:31→21:32)
[2020-05-07] MEDS: lisinopriL 20 MG TABLET PO (08:32)
[2020-05-07] MEDS: hydroCHLOROthiazide 25 MG TABLET PO (08:32)
[2020-05-07] MEDS: ALBUTEROL SULFATE (*SP) AEROSOL 1 PUFF 4 PUFF INHALATION ×3 (08:41→21:34)
--- NOTE | 2020-05-07 11:38 | PM.IMPN ---
Progress Note: A&P Assessment and Plan (1) Acute respiratory failure with hypoxia: Code(s): J96.01 - Acute respiratory failure with hypoxia Status: Acute Assessment and Plan: Patient was up to 15 L HFNC. Chest x-ray yesterday showed diffuse lung disease with interval worsening. He did receive plasma 05/03 . O2 requirement contineus to improve. Will continue current treatment monitor oxygen. (2) Pneumonia due to COVID-19 virus: Code(s): U07.1 - COVID-19; J12.82 - Pneumonia due to coronavirus disease 2018 Status: Acute Assessment and Plan: Transferred to IMU due to increased oxygen demands. Given Convalescent plasma 05/03/20. Remains on Dexamethasone and Remdesivir. Inflammatory markers showing improved CRP level but LDH about the same with ferritin climbing. Influenza negative. Oxygen requirement improved. Continue supportive care. Monitor oxygen requirement. Patient improving slightly. (3) Type 2 diabetes mellitus with hyperglycemia: Qualifiers: Diabetes mellitus long-term insulin use: without termite inspector use Qualified Code(s): E11.65 - Type 2 diabetes mellitus with hyperglycemia Code(s): E11.65 - Type 2 diabetes mellitus with hyperglycemia Status: Acute Assessment and Plan: Glucose poorly controlled due to steroids. Empagliflozin, saxagliptin and metformin held. Continue AccuCheks covering with sliding scale. Hypoglycemia protocol available as needed. Continue current medications. Add Lantus. adjust dose as needed (4) Essential (primary) hypertension: Code(s): I10 - Essential (primary) hypertension Status: Acute Assessment and Plan: Blood pressure remains well controlled. Will continue current medications with lisinopril and hydrochlorothiazide. (5) DVT prophylaxis: Code(s): Z29.9 - Encounter for prophylactic measures, unspecified Status: Acute Assessment and Plan: Lovenox Additional Plan Patient has acute hypoxic respiratory failure secondary to COVID-19 pneumonia. The patient was given a dose of Decadron in the ER. Loss of continue Decadron use 6 mg daily per recommended guidelines. Will also initiate the patient on Remdesivir as well. Will titrate oxygen as tolerated to maintain oxygen saturations between 90 and 92%. The patient has been started on albuterol 4 puffs q.6 hours scheduled. The patient's oxygen requirement is still increasing. Will I discussed the risks and benefits of comp less than plasma with the patient. He is willing to proceed with convalescent plasma therapy. Will check daily labs and inflammatory markers. Given recommendations from the [facility] from March 19, 2020 they recommend full-dose Lovenox to decrease need for advanced life support in hospitalized patient's with COVID-19. The patient has been started on Lovenox 100 mg subq q.12 hours. The patient's diabetes is usually controlled with oral medications. Given Decadron use anticipate the patient having increased episodes of hyperglycemia. Moderate sliding scale insulin with Accu-Cheks a.c. HS have been ordered as well as hypoglycemia protocol. Will continue current treatment monitor oxygen. Repeat chest x-ray in the morning. Patient is gradually getting better with continue current treatment. This document was completed by using [employer] Direct speech recognition software, therefore, rocket engine tester variances may occur. Despite proof reading and review of records errors may persist. Subjective Date/time seen: 05/07/20 11:38 Interval history: Patient was seen during the morning rounds today. Still has mild shortness of breath. No chest pain. Mood stable. No new complaints. Review of Systems Constitutional: Constitutional: Denies fatigue and Denies weakness Eyes: Eyes: Denies blurry vision and Denies photophobia ENT: Denies epistaxis, Denies nasal discharge and Denies neck pain Cardiovascular: Cardiov
[2020-05-07 12:19] LABS: Glucose Point of Care 228 (65-105)
[2020-05-07] MEDS: INSULIN ASPART (*BKC) 100 UNITS/ML SUB-Q ×2 (13:12→18:07)
[2020-05-07 18:12] LABS: Glucose Point of Care 262 (65-105)
[2020-05-07 20:44] LABS: Glucose Point of Care 266 (65-105)
[2020-05-07] MEDS: INSULIN GLARGINE (*BKC) 100 UNITS/ML 20 UNITS SUB-Q (21:33)
[2020-05-08] VITALS (11 sets, daily range): BP systolic 106–127; BP diastolic 51–69; PULSE 56–92; RESP 16–20; TEMP 35.8–37.1; O2SAT 93–98
[2020-05-08] MEDS: ALBUTEROL SULFATE (*SP) AEROSOL 1 PUFF 4 PUFF INHALATION ×4 (02:30→21:55)
[2020-05-08 07:50] LABS: Glucose Point of Care 118 (65-105)
[2020-05-08] MEDS: DEXAMETHASONE SOD PHOS INJ 4 MG/ML VIAL 6 MG IV PUSH (09:24)
[2020-05-08] MEDS: ENOXAPARIN 40 MG/0.4 ML SYRINGE SUB-Q ×2 (09:25→21:55)
[2020-05-08] MEDS: hydroCHLOROthiazide 25 MG TABLET PO (09:25)
[2020-05-08] MEDS: lisinopriL 20 MG TABLET PO (09:25)
[2020-05-08] MEDS: FAMOTIDINE 20 MG/2 ML VIAL IV PUSH ×2 (09:25→21:48)
--- NOTE | 2020-05-08 10:06 | PM.IMPN ---
Progress Note: A&P Assessment and Plan (1) Acute respiratory failure with hypoxia: Code(s): J96.01 - Acute respiratory failure with hypoxia Status: Acute Assessment and Plan: Patient was up to 15 L HFNC. Chest x-ray yesterday showed diffuse lung disease with interval worsening. He did receive plasma 05/03 . O2 requirement contineus to improve. Will continue current treatment monitor oxygen. (2) Pneumonia due to COVID-19 virus: Code(s): U07.1 - COVID-19; J12.82 - Pneumonia due to coronavirus disease 2018 Status: Acute Assessment and Plan: Transferred to IMU due to increased oxygen demands. Given Convalescent plasma 05/03/20. Remains on Dexamethasone and Remdesivir. Inflammatory markers showing improved CRP level but LDH about the same with ferritin climbing. Influenza negative. Oxygen requirement improved. Continue supportive care. Monitor oxygen requirement. Patient improving slightly. (3) Type 2 diabetes mellitus with hyperglycemia: Qualifiers: Diabetes mellitus fci insulin use: without terminal clerk use Qualified Code(s): E11.65 - Type 2 diabetes mellitus with hyperglycemia Code(s): E11.65 - Type 2 diabetes mellitus with hyperglycemia Status: Acute Assessment and Plan: Glucose poorly controlled due to steroids. Empagliflozin, saxagliptin and metformin held. Continue AccuCheks covering with sliding scale. Hypoglycemia protocol available as needed. Continue current medications. Add Lantus. adjust dose as needed (4) Essential (primary) hypertension: Code(s): I10 - Essential (primary) hypertension Status: Acute Assessment and Plan: Blood pressure remains well controlled. Will continue current medications with lisinopril and hydrochlorothiazide. (5) DVT prophylaxis: Code(s): Z29.9 - Encounter for prophylactic measures, unspecified Status: Acute Assessment and Plan: Lovenox Additional Plan Patient has acute hypoxic respiratory failure secondary to COVID-19 pneumonia. The patient was given a dose of Decadron in the ER. Loss of continue Decadron use 6 mg daily per recommended guidelines. Will also initiate the patient on Remdesivir as well. Will titrate oxygen as tolerated to maintain oxygen saturations between 90 and 92%. The patient has been started on albuterol 4 puffs q.6 hours scheduled. The patient's oxygen requirement is still increasing. Will I discussed the risks and benefits of comp less than plasma with the patient. He is willing to proceed with convalescent plasma therapy. Will check daily labs and inflammatory markers. Given recommendations from the [facility] from March 19, 2020 they recommend full-dose Lovenox to decrease need for advanced life support in hospitalized patient's with COVID-19. The patient has been started on Lovenox 100 mg subq q.12 hours. The patient's diabetes is usually controlled with oral medications. Given Decadron use anticipate the patient having increased episodes of hyperglycemia. Moderate sliding scale insulin with Accu-Cheks a.c. HS have been ordered as well as hypoglycemia protocol. Will continue current treatment monitor oxygen. Repeat chest x-ray in the morning. Patient is gradually getting better with continue current treatment. This document was completed by using [employer] speech recognition software, therefore, burglary investigator variances may occur. Despite proof reading and review of records errors may persist. Subjective Date/time seen: 05/08/20 10:06 Interval history: Patient was seen during the morning rounds today. Still has mild shortness of breath but is feeling better than yesterday No chest pain. Mood stable. No new complaints. Review of Systems Constitutional: Constitutional: Denies fatigue and Denies weakness Eyes: Eyes: Denies blurry vision and Denies photophobia ENT: Denies epistaxis, Denies nasal discharge and Denies
[2020-05-08 11:44] LABS: Glucose Point of Care 309 (65-105)
[2020-05-08] MEDS: INSULIN ASPART (*BKC) 100 UNITS/ML SUB-Q ×2 (12:36→18:06)
[2020-05-08] MEDS: INSULIN ASPART (*BKC) 100 UNITS/ML 15 UNITS SUB-Q ×2 (12:37→18:06)
--- NOTE | 2020-05-08 15:49 | PC.NURSE ---
This patient, Clayton Ramos, was transferred to [[id number] ] on 05/08/20 at 1545. Personal belongings sent with patient. Report given to [Julieta SIMMONS ]. Appropriate documentation sent with patient.
--- NOTE | 2020-05-08 17:56 | PC.NURSE ---
1542 This patient, Clayton Ramos, was received from [ IMU] on 05/08/20 at 1541. Patient/family oriented to unit policies and routines
[2020-05-08 18:10] LABS: Glucose Point of Care 244 (65-105)
[2020-05-08] MEDS: INSULIN GLARGINE (*BKC) 100 UNITS/ML 20 UNITS SUB-Q (21:55)
[2020-05-08 22:17] LABS: Glucose Point of Care 268 (65-105)
[2020-05-09 04:00] VITALS: BP 123/67; PULSE 65; RESP 16; TEMP 36.7; O2SAT 95
[2020-05-09 08:00] VITALS: BP 117/67; PULSE 60; RESP 16; TEMP 36.3; O2SAT 94
[2020-05-09 08:14] LABS: Glucose Point of Care 118 (65-105)
[2020-05-09 08:47] VITALS: O2SAT 94
[2020-05-09] MEDS: ALBUTEROL SULFATE (*SP) AEROSOL 1 PUFF 4 PUFF INHALATION (09:25)
[2020-05-09] MEDS: FAMOTIDINE 20 MG/2 ML VIAL IV PUSH (09:25)
[2020-05-09] MEDS: ENOXAPARIN 40 MG/0.4 ML SYRINGE SUB-Q (09:25)
[2020-05-09] MEDS: DEXAMETHASONE SOD PHOS INJ 4 MG/ML VIAL 6 MG IV PUSH (09:25)
[2020-05-09] MEDS: lisinopriL 20 MG TABLET PO (09:26)
[2020-05-09] MEDS: hydroCHLOROthiazide 25 MG TABLET PO (09:26)
[2020-05-09] MEDS: INSULIN ASPART (*BKC) 100 UNITS/ML 15 UNITS SUB-Q ×2 (09:31→12:37)
--- NOTE | 2020-05-09 10:16 | PM.IMPN ---
Progress Note: A&P Assessment and Plan (1) Acute respiratory failure with hypoxia: Code(s): J96.01 - Acute respiratory failure with hypoxia Status: Acute Assessment and Plan: Patient was up to 15 L HFNC. Chest x-ray yesterday showed diffuse lung disease with interval worsening. He did receive plasma 05/03 . O2 requirement contineus to improve. Will continue current treatment monitor oxygen. (2) Pneumonia due to COVID-19 virus: Code(s): U07.1 - COVID-19; J12.82 - Pneumonia due to coronavirus disease 2018 Status: Acute Assessment and Plan: Transferred to IMU due to increased oxygen demands. Given Convalescent plasma 05/03/20. Remains on Dexamethasone and Remdesivir. Inflammatory markers showing improved CRP level but LDH about the same with ferritin climbing. Influenza negative. Oxygen requirement improved. Continue supportive care. Monitor oxygen requirement. Patient improving slightly. (3) Type 2 diabetes mellitus with hyperglycemia: Qualifiers: Diabetes mellitus custodial insulin use: without terminal press operator use Qualified Code(s): E11.65 - Type 2 diabetes mellitus with hyperglycemia Code(s): E11.65 - Type 2 diabetes mellitus with hyperglycemia Status: Acute Assessment and Plan: Glucose poorly controlled due to steroids. Empagliflozin, saxagliptin and metformin held. Continue AccuCheks covering with sliding scale. Hypoglycemia protocol available as needed. Continue current medications. Add Lantus. adjust dose as needed (4) Essential (primary) hypertension: Code(s): I10 - Essential (primary) hypertension Status: Acute Assessment and Plan: Blood pressure remains well controlled. Will continue current medications with lisinopril and hydrochlorothiazide. (5) DVT prophylaxis: Code(s): Z29.9 - Encounter for prophylactic measures, unspecified Status: Acute Assessment and Plan: Lovenox Additional Plan Patient has acute hypoxic respiratory failure secondary to COVID-19 pneumonia. The patient was given a dose of Decadron in the ER. Loss of continue Decadron use 6 mg daily per recommended guidelines. Will also initiate the patient on Remdesivir as well. Will titrate oxygen as tolerated to maintain oxygen saturations between 90 and 92%. The patient has been started on albuterol 4 puffs q.6 hours scheduled. The patient's oxygen requirement is still increasing. Will I discussed the risks and benefits of comp less than plasma with the patient. He is willing to proceed with convalescent plasma therapy. Will check daily labs and inflammatory markers. Given recommendations from the [facility] from March 19, 2020 they recommend full-dose Lovenox to decrease need for advanced life support in hospitalized patient's with COVID-19. The patient has been started on Lovenox 100 mg subq q.12 hours. The patient's diabetes is usually controlled with oral medications. Given Decadron use anticipate the patient having increased episodes of hyperglycemia. Moderate sliding scale insulin with Accu-Cheks a.c. HS have been ordered as well as hypoglycemia protocol. Will continue current treatment monitor oxygen. Repeat chest x-ray in the morning. Patient is gradually getting better with continue current treatment. Possible discharge in the morning.. This document was completed by using [employer] speech recognition software, therefore, bank operations officer variances may occur. Despite proof reading and review of records errors may persist. Subjective Date/time seen: 05/09/20 10:16 Interval history: Patient was seen during the morning rounds today. Patient is feeling much better today. Shortness of breath has decreased. No chest pain. Mood stable. No new complaints. Review of Systems Constitutional: Constitutional: Denies fatigue and Denies weakness Eyes: Eyes: Denies blurry vision and Denies photophobia ENT: Denies epis
--- NOTE | 2020-05-09 11:38 | PM.DS ---
DS: Admitting Diagnosis Admitting Diagnosis Admitting Diagnosis: Acute respiratory failure with hypoxia COVID pneumonia History of diabetes DS: Discharge Diagnosis Discharge Diagnosis (1) Acute respiratory failure with hypoxia: Code(s): J96.01 - Acute respiratory failure with hypoxia Status: Acute Assessment and Plan: Patient was up to 15 L HFNC. Chest x-ray yesterday showed diffuse lung disease with interval worsening. He did receive plasma 05/03 . O2 requirement contineus to improve. Will continue current treatment monitor oxygen. (2) Pneumonia due to COVID-19 virus: Code(s): U07.1 - COVID-19; J12.82 - Pneumonia due to coronavirus disease 2018 Status: Acute Assessment and Plan: Transferred to IMU due to increased oxygen demands. Given Convalescent plasma 05/03/20. Remains on Dexamethasone and Remdesivir. Inflammatory markers showing improved CRP level but LDH about the same with ferritin climbing. Influenza negative. Oxygen requirement improved. Continue supportive care. Monitor oxygen requirement. Patient improving slightly. (3) Type 2 diabetes mellitus with hyperglycemia: Qualifiers: Diabetes mellitus mcfp insulin use: without mcfp use Qualified Code(s): E11.65 - Type 2 diabetes mellitus with hyperglycemia Code(s): E11.65 - Type 2 diabetes mellitus with hyperglycemia Status: Acute Assessment and Plan: Glucose poorly controlled due to steroids. Empagliflozin, saxagliptin and metformin held. Continue AccuCheks covering with sliding scale. Hypoglycemia protocol available as needed. Continue current medications. Add Lantus. adjust dose as needed (4) Essential (primary) hypertension: Code(s): I10 - Essential (primary) hypertension Status: Acute Assessment and Plan: Blood pressure remains well controlled. Will continue current medications with lisinopril and hydrochlorothiazide. (5) DVT prophylaxis: Code(s): Z29.9 - Encounter for prophylactic measures, unspecified Status: Acute Assessment and Plan: Lovenox DS: Summary Hospital Course Reason for hospitalization: Acute respiratory failure with hypoxia COVID pneumonia History of diabetes History of hypertension Hospital Course: 54 years old male admitted with complaint of having shortness of breath. Patient chest x-ray shows that patient is COVID pneumonia.Patient was also in acute respiratory failure with hypoxia. Patient was given antibiotic and oxygen and pulmonary consultation was done. Patient did not have any complication during the stay in the hospital. Today patient is feeling better patient has requiring any oxygen. Patient discharged home in stable condition. Follow-up scheduled. Time spent discussing smoking cessation with patient: 3 to 10 minutes Status at Discharge Cognitive/behavioral status at discharge: Stable Functional status at discharge: independent ambulation Time Spent with Patient Time attestation: Total time spent providing and/or coordinating discharge services: Time spent: Less than 30 minutes Exam Narrative: Exam Narrative: AF 96.1 121/63 64 22 95 % 12L HFNC (on 10L currenlty) Gen - NARD Chest - distant but clear BS, nml RR CV - RRR S1/S2; Tele showing no significant dysrhythmias Abd - Soft, NT/ND, Positive BS Ext - mild nonpitting pedal edema Neuro - Alert and oriented. Nonfocal exam. Psych - Nml mood and affect Skin - Warm and dry Const: General: comfortable, no acute distress, alert, awake, Physically active and ill appearing acutely; No confusion Nutritional Appearance: average body habitus Orientation/consciousness: patient oriented x3 and No confusion HENMT: Head: normal to inspection and normocephalic Ears: hearing grossly normal bilaterally General nose exam: Normal external nose present Eyes: General: appearance normal, both eyes and all related structures Pupils: Equal, round and reac
[2020-05-09 12:19] LABS: Glucose Point of Care 272 (65-105)
[2020-05-09] MEDS: INSULIN ASPART (*BKC) 100 UNITS/ML SUB-Q (12:37)
--- NOTE | 2020-05-09 13:31 | PC.NURSE ---
Pt has been discharged. Pt had IV removed, and discharge paperwork reviewed with opportunities to ask questions provided. Pt exhibited good understanding of discharge instructions and was assisted to the front doors in a wheelchair, by staff.
== END 2020-05-09 13:15 | disposition home or self-care (01) | DRG 177 ==
LOC: ANHED 18:49 → ANHIMU 05-03 14:47 → ANH3MEDSUR 05-09 11:38 → ANHIMU 05-12 13:03
PROVIDERS: Internal Medicine; Internal Medicine Pulmonary Disease; Admitting Provider Internal Medicine; Emergency Provider Emergency Medicine; PCP Family Medicine; Visit Provider Internal Medicine
DX: U07.1 COVID-19 (principal); J12.82 Pneumonia due to coronavirus disease 2019; J96.01 Acute respiratory failure with hypoxia; E11.65 Type 2 diabetes mellitus with hyperglycemia; I10 Essential (primary) hypertension; Z28.21 Immunization not carried out because of patient refusal; Z79.84 Long term (current) use of oral hypoglycemic drugs; Z79.899 Other long term (current) drug therapy
CPT/HCPCS: 36415; 36430; 36600; 71045; 80053; 82375; 82728; 82805; 82948; 83036; 83050; 83615; 83880; 85025; 85027; 85380; 85610; 85730; 86140; 86900; 86901; 87040; 87804; 94640; 96372; 96374; 99285; A9270; J1100; J1650; J1815; J7050; J7120; P9059